=== PATIENT | female | born 1950 | race Two or more races ===

== ENCOUNTER 2018-10-04 10:33 | Outpatient (CLI) | payer MEDICARE, OTHER | END 2018-10-04 10:34 | disposition home or self-care (01) | DRG 561 | LOC: CONVCARE 10:33 | PROVIDERS: ATTEND Orthopaedic Surgery | DX: S82.001D Unspecified fracture of right patella, subsequent encounter for closed fracture with routine healing (principal) | CPT/HCPCS: 73560 ==

== ENCOUNTER 2019-04-17 10:01 | Emergency (ER) | payer MEDICARE, OTHER | END 2019-04-17 13:06 | LOC: ED 10:01 ==